=== PATIENT | male | born 1985 | race Caucasian/White ===

== ENCOUNTER 2017-10-01 07:49 | Emergency (ER) | payer OTHER ==
[2017-10-01] MEDS ORDERED: Diph,Pert(Acell),Tet Vac 0.5 ML SYR IM ONE (08:11)
--- NOTE | 2017-10-01 08:22 | Emergency Department Record ---
History of Present Illness - General Chief complaint: Head Injury Stated complaint: HEAD INJ Time Seen by Provider: 10/01/17 08:03 Source: Patient Mode of Arrival: Ambulatory Limitations: No limitations - History of Present Illness Initial comments: pt awakened this am , went to the bathroom and passed out when he stood up. he had enjoyed new years amada after getting out of work. he hit his head and has a headache. he has a laceration MD Complaint: Head injury, Fall Onset/Timin -: Hour(s) Location: Occipital, Parietal Loss of Consciousness: Unsure Quality: Aching - Related Data Home Medications Medication Instructions Recorded Confirmed Last Taken Atenolol 50 mg PO DAILY 10/01/17 10/01/17 1 Day Ago ~09/30/17 Lisinopril/Hydrochlorothiazide 1 each PO DAILY 10/01/17 10/01/17 1 Day Ago [Lisinopril-Hctz 10-12.5 mg Tab] ~09/30/17 Sertraline HCl [Zoloft] 50 mg PO DAILY 10/01/17 10/01/17 1 Day Ago ~09/30/17 Allergies/Adverse reactions: Allergies Allergy/AdvReac Type Severity Reaction Status Date / Time No Known Drug Allergies Allergy Verified 10/01/17 07:58 Travel Screening - Travel/Exposure Within Last 30 Days Have you traveled within the last 30 days?: No - Travel/Exposure Within Last Year Have you traveled outside the [place] in the last year?: No - Additonal Travel Details Have you been exposed to anyone with a communicable illness?: No - Travel Symptoms Symptom Screening: None Review of Systems Reviewed: No additional complaints except as noted below Constitutional: Reports: As per HPI. Denies: Chills, Fever, Malaise, Night sweats, Weakness, Weight change Eyes: Reports: As per HPI. Denies: Eye discharge, Eye pain, Photophobia, Vision change ENT: Reports: As per HPI. Denies: Congestion, Dental pain, Ear pain, Epistaxis , Hearing loss, Throat pain Respiratory: Reports: As per HPI. Denies: Cough, Dyspnea, Hemoptysis, Stridor, Wheezes Cardiovascular: Reports: As per HPI. Denies: Arrhythmia, Chest pain, Dyspnea on exertion, Edema, Murmurs, Orthopnea, Palpitations, Paroxysmal nocturnal dyspnea, Rheumatic Fever, Syncope Endocrine: Reports: As per HPI. Denies: Fatigue, Heat or cold intolerance, Polydipsia, Polyuria Gastrointestinal: Reports: As per HPI. Denies: Abdominal pain, Constipation, Diarrhea, Hematemesis, Hematochezia, Melena, Nausea, Vomiting Genitourinary: Reports: As per HPI. Denies: Dysuria, Frequency, Hematuria, Incontinence, Retention, Testicular pain, Testicular mass, Urgency Musculoskeletal: Reports: As per HPI. Denies: Arthralgia, Back pain, Gout, Joint swelling, Myalgia, Neck pain Skin: Reports: As per HPI. Denies: Bruising, Change in color, Change in hair/ nails, Lesions, Pruritus, Rash Neurological: Reports: As per HPI. Denies: Abnormal gait, Confusion, Headache, Numbness, Paresthesias, Seizure, Tingling, Tremors, Vertigo, Weakness Psychiatric: Reports: As per HPI. Denies: Anxiety, Auditory hallucinations, Depression, Homicidal thoughts, Suicidal thoughts, Visual hallucinations Hematological/Lymphatic: Reports: As per HPI. Denies: Anemia, Blood Clots, Easy bleeding, Easy bruising, Swollen glands Past Medical History - SOCIAL HISTORY Smoking Status: Current every day smoker Alcohol Use: Occasional Drug Use: None - RESPIRATORY Hx Respiratory Disorders: No - CARDIOVASCULAR Hx Hypertension: Yes - NEURO Hx Neuro Disorders: No - GI Hx GI Disorders: No - Hx Genitourinary Disorders: No - ENDOCRINE Hx Diabetes: No Hx Thyroid Disease: No - MUSCULOSKELETAL Hx Musculoskeletal Disorders: No - PSYCH Hx Psych Problems: No - HEMATOLOGY/ONCOLOGY Hx Hematology/Oncology Disorders: No Family Medical History Any Significant Family History?: Yes Physical Exam - General General Appearance: Alert, Oriented x3, Cooperative, Mild distress - Head Head exam: Normal inspection Head exam detail: Laceration Image of Face/Head: 1 - 5cm lac - Eye Eye exam: Normal appearance, PERRL, EOMI Pupils: Normal accommodation - ENT ENT exam: Normal exam, Mucous membranes moist, Normal external ear exam, Normal orophraynx Ear exam: Normal external inspection. negative: External canal tenderness Nasal Exam: Normal inspection. negative: Discharge, Sinus tenderness Mouth exam: Normal external inspection, Tongue normal Teeth exam: Normal inspection. negative: Dental caries Throat exam: Normal inspection. negative: Tonsillar erythema, Tonsillar exudate - Neck Neck exam: Normal inspection, Full ROM. negative: Tenderness - Respiratory Respiratory exam: Normal lung sounds bilaterally. negative: Respiratory distress - Cardiovascular Cardiovascular Exam: Normal rhythm, Normal heart sounds, Tachycardia - GI/Abdominal GI/Abdominal exam: Soft, Normal bowel sounds. negative: Tenderness - Rectal Rectal exam: Deferred - exam: Deferred - Extremities Extremities exam: Normal inspection, Full ROM, Normal capillary refill. negative: Tenderness - Back Back exam: Reports: Normal inspection, Full ROM. Denies: Muscle spasm, Rash noted, Tenderness - Neurological Neurological exam: Alert, CN II-XII intact, Normal gait, Oriented X3 - Psychiatric Psychiatric exam: Normal affect, Normal mood - Skin Skin exam: Dry, Intact, Normal color, Warm Course Vital Signs 10/01/17 07:52 Temperature 97.6 F Pulse Rate 103 H Respiratory 18 Rate Blood Pressure 150/100 Pulse Ox 99 Medical Decision Making - Lab Data Result diagrams: 10/01/17 08:15 10/01/17 08:15 Disposition Disposition: Discharge Clinical Impression: Laceration Syncope Qualifiers: Syncope type: unspecified Qualified Code(s): R55 - Syncope and collapse Head injury Qualifiers: Encounter type: initial encounter Qualified Code(s): S09.90XA - Unspecified injury of head, initial encounter Disposition: Home, Self-Care Condition: (1) Good Instructions: Laceration (ED), Syncope (ED), Head Injury (ED), Staple Care (ED) Additional Instructions: follow up with family doctor. return sooner if worse. khushbu out in 12 days. push fluids Forms: Patient Portal Access, Return to Work/School Quality - Quality Measures Quality Measures: N/A - Blood Pressure Screening Does Patient Have Any of the Following: No Blood Pressure Classification: Hypertensive Reading Systolic Measurement: 150 Diastolic Measurement: 100 Screening for High Blood Pressure: < First Hypertensive BP, F/U Documented > [ G8950] First Hypertensive Follow-up Interventions: Follow-up with rescreen GT 1 day and LT 4 weeks. Laceration - Head - Time Out Informed consent:: Informed consent obtained Confirmed first & last name, , procedure, correct site?: Yes - Location Location of laceration:: Left Laceration located on:: Scalp Length of laceration:: 5 Length of laceration:: cm - Clean and Prep Laceration cleaning method:: Cleansed Laceration cleaning agent:: Normal Saline, Betadine - Topical Anesthetic Lidocaine dose:: 2 mL Lidocaine used:: 2% - Medication Medicated for procedure?: No - Procedural Detail Tissue detail:: Torn Foreign body in the wound?: No Undermining was preformed?: No Stent applied?: No [place] applied?: Yes Total number of khushbu:: 12
[2017-10-01 08:25] LABS: BASO % 0.3 % (0-6); EOS % 1.1 % (0-6); GRAN % 61.3 % (47-80); HEMATOCRIT 42.8 % (42.0-52.0); HEMOGLOBIN 14.9 gm/dl (14.0-18.0); LYMPH % 28.7 % (16-45); MEAN CELL VOLUME 99.1 fl (81-97); MEAN CORPUSCULAR HGB CONC 34.8 g/dl (32-36); MEAN PLATELET VOLUME 9.4 fl (7.4-10.4); MONO % 8.6 % (0-9); PLATELET COUNT 208 K/uL (130-400); RED BLOOD COUNT 4.32 M/uL (4.40-5.70); RED CELL DISTRIBUTION WIDTH 14.9 % (11.5-14.5); WHITE BLOOD COUNT W/O DIFF 8.9 K/uL (4.2-12.2)
[2017-10-01 08:26] LABS: MEAN CORPUSCULAR HEMOGLOBIN 34.4 pg (27-33)
[2017-10-01] MEDS ORDERED: 0.9 % SODIUM CHLORIDE 1,000 ML BAG IV ONE (08:27)
[2017-10-01 10:09] LABS: BLOOD UREA NITROGEN 12 mg/dL (6-20); CREATININE 0.8 mg/dL (0.7-1.2); EST GLOMERULAR FILTRATION RATE > 60 mL/min; GLUCOSE,RANDOM 135 mg/dL (74-109)
[2017-10-01 10:36] LABS: CKMB 1.2 ng/mL (<6.73)
--- NOTE | 2017-10-02 07:42 | CT SCAN REPORT ---
EXAM: CT SCAN OF THE BRAIN WITHOUT CONTRAST HISTORY: FELL THIS MORNING. LEFT POSTERIOR SCALP LACERATION. TECHNIQUE: Standard CT imaging of the brain was performed in the axial plane without contrast. Additional coronal and sagittal reformatted images were also performed. Comparison: None. Encounter: Initial. FINDINGS: The ventricles and subarachnoid spaces are normal. There is no mass , mass effect, intracranial hemorrhage, visible acute infarct, or abnormal extraaxial fluid. The skull is intact. There is mild scalp swelling within the left parietal region. There is no foreign body. The orbits are normal. There is a small amount of fluid within the right maxillary sinus suggesting sinusitis. The mastoid air cells are clear. IMPRESSION: 1. NO ACUTE INTRACRANIAL ABNORMALITY OR SKULL FRACTURE. 2. MILD LEFT PARIETAL SCALP SWELLING. 3. MILD RIGHT MAXILLARY SINUSITIS. JOB NUMBER: [id number] MTDD
== END 2017-10-01 09:45 | disposition home or self-care (01) ==
LOC: ER 07:49
DX: S01.01XA Laceration without foreign body of scalp, initial encounter (principal); S09.90XA Unspecified injury of head, initial encounter; R55 Syncope and collapse; I10 Essential (primary) hypertension; F17.210 Nicotine dependence, cigarettes, uncomplicated; W01.198A Fall on same level from slipping, tripping and stumbling with subsequent striking against other object, initial encounter; Y92.002 Bathroom of unspecified non-institutional (private) residence as the place of occurrence of the external cause
CPT/HCPCS: 12002; 70450; 80048; 82553; 85025; 90715; 93005; 93010; 96372; 99284; J7030

== ENCOUNTER 2017-10-08 07:35 | Day surgery (SDC) | payer OTHER ==
[2017-10-08] MEDS ORDERED: PROPOFOL 10 MG/ML VIAL IV ONE (07:36)
[2017-10-08] MEDS ORDERED: MIDAZOLAM HCL 2MG/2ML VIAL IV ONE (07:36)
[2017-10-08] MEDS ORDERED: LIDOCAINE 2% MDV (20MG/ML) 20ML VIAL IV ONE (07:36)
--- NOTE | 2017-10-08 13:50 | Operative Note ---
Dictated by Dr. Noel Sosa DATE OF SURGERY: 10/08/2017 PREOPERATIVE DIAGNOSIS: Rectal bleeding, family history of colon cancer. POSTOPERATIVE DIAGNOSES: 1. A 4 mm sigmoid colon polyp, status post cold forceps polypectomy. 2. Small internal hemorrhoids. 3. Otherwise normal colonoscopy to terminal ileum. ENDOSCOPIST: Bennie Butler DO ENGINEHOUSE BRAKEMAN: Dr. Noel Sosa OPERATION: Colonoscopy with polypectomy. INDICATION: A 32-year-old male who presented with episode of rectal bleeding that filled the toilet. The patient does have family history of colon cancer with father diagnosed with colon cancer at age 53. The patient denies any weight loss or changes in bowel habits. PROCEDURE: The procedure was explained to the patient including risks, benefits , and alternatives. The patient had an opportunity to get his questions answered. The patient agreed to the procedure and signed informed consent. The patient was brought to the endoscopy suite and was placed in the left lateral decubitus position. Anesthesia was begun and procedure begun with introduction of a well-lubricated Olympus [id number] colonoscope to rectum. The scope was advanced all the way to the cecum where appendiceal orifice as well as ileocecal valve was identified. The terminal ileum was intubated, which appeared normal. Overall quality of the prep was excellent. The scope was then withdrawn slowly from cecum, ascending colon, transverse colon, descending colon , sigmoid colon to rectum. There was a small one 4 mm sigmoid colon polyp which was removed with cold forceps and was retrieved. The scope was retroflexed at the rectum which showed small internal hemorrhoids. The scope was then placed back into the neutral position and was withdrawn completely. The patient tolerated the procedure well without any immediate complications. RECOMMENDATIONS: 1. Await pathology result. 2. Repeat colonoscopy in 5 years given family history of colon cancer. 3. High-fiber diet regarding internal hemorrhoids and may need Preparation H ointment or cream if hemorrhoids are significant. As always, thank you for allowing me to participate in the care of your patient. CC: Dr. Irwin NEVES
== END 2017-10-08 09:30 | disposition home or self-care (01) ==
LOC: HOP 07:35
PROVIDERS: ATTEND Internal Medicine Gastroenterology
DX: K92.1 Melena (principal); D12.5 Benign neoplasm of sigmoid colon; K64.8 Other hemorrhoids; I10 Essential (primary) hypertension

== ENCOUNTER 2017-10-12 12:56 | Emergency (ER) | payer OTHER ==
--- NOTE | 2017-10-12 13:17 | Emergency Department Record ---
History of Present Illness - General Chief Complaint: Suture removal Stated Complaint: staple removal Time Seen by Provider: 10/12/17 13:12 Source: Patient Mode of arrival: Ambulatory Limitations: No limitations - History of Present Illness Initial Comments: 32 yo male presents for staple removal. No complaints. No swelling, redness, pus, headache or dizziness. MD Complaint: Suture/staple removal Onset/Timin -: Days(s) Initial Visit For: Laceration Symptoms Since Prior Visit: No new symptoms, Improved - Related Data Allergies Allergy/AdvReac Type Severity Reaction Status Date / Time No Known Drug Allergies Allergy Verified 10/12/17 13:05 Travel Screening - Travel/Exposure Within Last 30 Days Have you traveled within the last 30 days?: No - Travel/Exposure Within Last Year Have you traveled outside the [place] in the last year?: No - Additonal Travel Details Have you been exposed to anyone with a communicable illness?: No - Travel Symptoms Symptom Screening: None Review of Systems Constitutional: Denies: Chills, Fever, Malaise Eyes: Denies: Eye discharge, Eye pain, Vision change ENT: Denies: Congestion, Throat pain Respiratory: Denies: Cough Cardiovascular: Denies: Chest pain Endocrine: Denies: Fatigue Gastrointestinal: Denies: Nausea, Vomiting Musculoskeletal: Denies: Arthralgia, Back pain, Neck pain Skin: Denies: Bruising, Change in color, Rash Neurological: Denies: Abnormal gait, Confusion, Headache, Paresthesias, Tingling , Vertigo, Weakness Psychiatric: Denies: Anxiety Hematological/Lymphatic: Denies: Blood Clots, Easy bleeding, Easy bruising, Swollen glands Past Medical History - SOCIAL HISTORY Smoking Status: Current every day smoker Alcohol Use: None Drug Use: None - RESPIRATORY Hx Respiratory Disorders: No - CARDIOVASCULAR Hx Cardio Disorders: Yes Hx Hypertension: Yes - NEURO Hx Neuro Disorders: No - GI Hx GI Disorders: Yes Hx Rectal Bleeding: Yes - Hx Genitourinary Disorders: No - ENDOCRINE Hx Endocrine Disorders: No Hx Diabetes: No Hx Thyroid Disease: No - MUSCULOSKELETAL Hx Musculoskeletal Disorders: No - PSYCH Hx Psych Problems: Yes Hx Anxiety: Yes - HEMATOLOGY/ONCOLOGY Hx Hematology/Oncology Disorders: No Family Medical History Any Significant Family History?: Yes Hx Cancer: Father *Cancer Comment: colon Physical Exam - General General Appearance: Alert, Oriented x3, Cooperative, No acute distress Limitations: No limitations - Head Head exam: Atraumatic, Normal inspection (Healing scalp laceration) - Eye Eye exam: Normal appearance. negative: Conjunctival injection - ENT ENT exam: Normal exam Ear exam: Normal external inspection Nasal Exam: Normal inspection - Neck Neck exam: Normal inspection - Rectal Rectal exam: Deferred - exam: Deferred - Neurological Neurological exam: Alert, Normal gait, Oriented X3. negative: Abnormal gait, Altered, Motor sensory deficit - Psychiatric Psychiatric exam: Normal affect, Normal mood - Skin Skin exam: Dry, Intact, Normal color, Warm Course Vital Signs 10/12/17 13:00 Temperature 98.3 F Pulse Rate 77 Respiratory 16 Rate Blood Pressure 138/102 Pulse Ox 98 - Reevaluation(s) Reevaluation #1: The scalp laceration is healing well The khushbu were removed without difficulty 10/12/17 13:18 Disposition Disposition: Discharge Clinical Impression: Removal of khushbu Disposition: Home, Self-Care Condition: (1) Good Instructions: Stitches Removal (ED) Additional Instructions: Return if you have any concerns about the ongoing healing of your laceration Quality - Quality Measures Quality Measures: N/A - Blood Pressure Screening Does Patient Have Any of the Following: No Blood Pressure Classification: Hypertensive Reading Systolic Measurement: 138 Diastolic Measurement: 102 Screening for High Blood Pressure: < Pre-Hypertensive BP, F/U Documented > [ G8950] Pre-Hypertensive Follow-up Interventions: Referral to alternative/primary care provider.
== END 2017-10-12 13:24 | disposition home or self-care (01) ==
LOC: ER 12:56
DX: Z48.02 Encounter for removal of sutures (principal)